=== PATIENT | female | born 1985 | race African-American/Black ===

== ENCOUNTER 2018-06-28 11:37 | Outpatient (CLI) | payer OTHER ==
[2018-06-28] VITALS (8 sets, daily range): BP systolic 107–133; BP diastolic 65–89
[2018-06-28 12:34] LABS: BASOPHIL (%) 0.2 % (0-1); EOSINOPHIL (%) 0.2 % (0-5); HEMATOCRIT 27.5 % (36.0-46.0); HEMOGLOBIN 9.5 G/DL (11.9-15.5); IMMATURE GRANULOCYTE (%) 0.5 % (0.0-0.7); LYMPHOCYTE (%) 22.5 % (15-42); LYMPHOCYTE COUNT 2.9 K/uL (1.0-2.8); MCH 32.3 PG (29.0-34.0); MCHC 34.5 G/DL (30.0-36.0); MCV 93.5 FL (83-99); MONOCYTE (%) 5.6 % (3-12); MONOCYTE COUNT 0.7 K/uL (0-0.8); NEUTROPHIL COUNT 9.1 K/uL (1.8-6.4); PLATELET COUNT 256 K/uL (156-360); RBC DIS.WIDTH-CV 13.3 % (11.8-14.6); RBC DIS.WIDTH-SD 45.5 % (39-53); RED BLOOD COUNT 2.94 M/uL (3.80-5.20); WHITE BLOOD COUNT 12.8 K/uL (4.1-10.2)
[2018-06-28 12:47] LABS: ALBUMIN 3.1 g/dL (3.2-4.8)
[2018-06-28 12:48] LABS: CHLORIDE 107 mEq/L (99-109); POTASSIUM 3.9 mEq/L (3.7-5.4); SODIUM 137 mEq/L (136-147)
[2018-06-28 12:50] LABS: GLUCOSE 76 mg/dL (70-99)
[2018-06-28 12:52] LABS: TOTAL BILIRUBIN 0.3 mg/dL (0.0-1.0)
[2018-06-28 12:54] LABS: ALKALINE PHOSPHATASE 123 IU/L (3-129); CREATININE 0.6 mg/dL (0.6-1.3); GFR ESTIMATE (CALCULATED) > 59 mL/min/
[2018-06-28 12:55] LABS: UREA NITROGEN (BUN) 4 mg/dL (9-23)
[2018-06-28 12:56] LABS: AST (GOT) 14 IU/L (2-34)
[2018-06-28 12:57] LABS: ALT (GPT) 11 IU/L (3-49)
[2018-06-28 13:22] LABS: UR CREATININE CONCENTRATION 158.5 MG/DL
== END 2018-06-28 14:20 | disposition home or self-care (01) ==
LOC: LDRP-OP 11:37 → 2WEST 11:38
PROVIDERS: Obstetrics & Gynecology
DX: O12.10 Gestational proteinuria, unspecified trimester (principal); Z3A.00 Weeks of gestation of pregnancy not specified
CPT/HCPCS: 59025; 80053; 82570; 84156; 85025; 87086; G0378

== ENCOUNTER 2018-07-02 16:21 | Inpatient (IN) | payer OTHER ==
[2018-07-02] VITALS (7 sets, daily range): BP systolic 113–138; BP diastolic 63–84
[~2018-07-02] VITALS: Ht 160 cm; Wt 82.7 kg
[2018-07-02 19:48] LABS: BASOPHIL (%) 0.2 % (0-1); EOSINOPHIL (%) 0.2 % (0-5); HEMATOCRIT 26.5 % (36.0-46.0); HEMOGLOBIN 9.1 G/DL (11.9-15.5); IMMATURE GRANULOCYTE (%) 0.4 % (0.0-0.7); LYMPHOCYTE (%) 21.8 % (15-42); LYMPHOCYTE COUNT 2.9 K/uL (1.0-2.8); MCH 31.9 PG (29.0-34.0); MCHC 34.3 G/DL (30.0-36.0); MONOCYTE (%) 5.8 % (3-12); MONOCYTE COUNT 0.8 K/uL (0-0.8); NEUTROPHIL (%) 71.6 % (45-76); NEUTROPHIL COUNT 9.6 K/uL (1.8-6.4); PLATELET COUNT 267 K/uL (156-360); RBC DIS.WIDTH-CV 13.2 % (11.8-14.6); RBC DIS.WIDTH-SD 45.2 % (39-53); RED BLOOD COUNT 2.85 M/uL (3.80-5.20); WHITE BLOOD COUNT 13.4 K/uL (4.1-10.2)
[2018-07-02 21:06] LABS: AMPHETAMINE NEGATIVE (500 ng/mL); BARBITURATES NEGATIVE (200 ng/mL); BENZODIAZEPINES NEGATIVE (150 ng/mL); BUPRENORPHINE NEGATIVE (10 ng/mL); COCAINE NEGATIVE (150 ng/mL); METHADONE NEGATIVE (200 ng/mL); METHAMPHETAMINE NEGATIVE (500 ng/mL); OPIATES (MORPHINE) NEGATIVE (100 ng/mL); OXYCODONE NEGATIVE (100 ng/mL); PHENCYCLIDINE NEGATIVE (25 ng/mL); PROPOXYPHENE NEGATIVE (300 ng/mL); THC CANNABINOIDS NEGATIVE (50 ng/mL); TRICYCLIC ANTIDEPRESSANTS NEGATIVE (300 ng/mL)
[2018-07-03] VITALS (24 sets, daily range): BP systolic 109–151; BP diastolic 62–95
[2018-07-04 00:40] VITALS: BP 145/75
[2018-07-04 07:30] VITALS: BP 106/61
== END 2018-07-04 15:45 | disposition home or self-care (01) | DRG 775 ==
LOC: LDRP-OP 16:21 → 2WEST 16:22 → LDRP-OP 08-21 14:40
PROVIDERS: Midwife
PROC: 3E0R3BZ Introduction of Anesthetic Agent into Spinal Canal, Percutaneous Approach (ICD-10-PCS; principal; 2018-07-03)
PROC: 00HU33Z Insertion of Infusion Device into Spinal Canal, Percutaneous Approach (ICD-10-PCS; principal; 2018-07-03)
PROC: 3E0P7VZ Introduction of Hormone into Female Reproductive, Via Natural or Artificial Opening (ICD-10-PCS; principal; 2018-07-03)
PROC: 10E0XZZ Delivery of Products of Conception, External Approach (ICD-10-PCS; principal; 2018-07-03)
PROC: 3E033VJ Introduction of Other Hormone into Peripheral Vein, Percutaneous Approach (ICD-10-PCS; principal; 2018-07-03)
DX: O13.4 Gestational [pregnancy-induced] hypertension without significant proteinuria, complicating childbirth (principal); Z37.0 Single live birth; Z3A.37 37 weeks gestation of pregnancy; O99.334 Smoking (tobacco) complicating childbirth; F17.200 Nicotine dependence, unspecified, uncomplicated; O36.5930 Maternal care for other known or suspected poor fetal growth, third trimester, not applicable or unspecified
CPT/HCPCS: 85025; C1755; G0378; J1050; J3010